=== PATIENT | male | born 1990 | race Caucasian/White ===

== ENCOUNTER 2018-10-07 04:37 | Emergency (ER) | payer SELFPAY ==
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
[2018-10-07] MEDS ORDERED: IOPAMIDOL 76% 100 ML INFUS BTL 100 ML ONE (05:11)
[2018-10-07 05:26] LABS: PLATELET COUNT, AUTOMATED 221 K/uL (150-450)
[2018-10-07 05:30] LABS: INR 0.98
[2018-10-07] MEDS ORDERED: ALBU8.5H IH (05:34)
[2018-10-07] MEDS ORDERED: EMS NS 0.9%(*) 1000 ML BAG 1,000 ML IV ONE (05:40)
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
[2018-10-07] MEDS ORDERED: LOR5/325 PO (06:15)
[2018-10-07 06:21] VITALS: BP 112/71
== END 2018-10-07 08:03 | disposition home or self-care (01) ==
LOC: ER 04:47
DX: S22.41XD Multiple fractures of ribs, right side, subsequent encounter for fracture with routine healing (principal)
CPT/HCPCS: 71260; 74177; 81001; 85025; 85610; 85730; 96360; 96361; 99284; Q9967; 82040; 82247; 82310; 82374; 82435; 82565; 82947; 84075; 84132; 84155; 84295; 84450; 84460; 84520